=== PATIENT | female | born 1990 | race Hispanic/Latino ===

== ENCOUNTER 2019-08-02 13:19 | Emergency (ER) | payer MEDICAID ==
[2019-08-02 13:24] VITALS: BP 112/72
--- NOTE | 2019-08-02 13:25 | Event Note ---
ED Screening Note ED Screening Note: right lower abd pain that radiates to right leg that began 4 day ago no N/V tolerating PO intake no fever no urinary sx never had before no PMHx no allergies to meds LNMP 07/30/19 This initial assessment/diagnostic orders/clinical plan/treatment(s) is/are subject to change based on patients health status, clinical progression and re- assessment by fellow clinical providers in the ED. Further treatment and workup at subsequent clinical providers discretion. Patient/guardian urged not to elope from the ED as their condition may be serious if not clinically assessed and managed. Initial orders include: labs, UA, urine preg
[2019-08-02] MEDS ORDERED: HYDROcodone/ACETAMINOPHEN 5-325 MG TAB PO ONE (13:59)
[2019-08-02] MEDS ORDERED: IBUPROFEN 800 MG TAB PO ONE (13:59)
[2019-08-02 14:02] LABS: Hematocrit 43.7 % (30.3-42.9); Hemoglobin 14.9 gm/dl (10.1-14.3); Mean Corpuscular HGB Conc 34 % (30-34); Mean Corpuscular Volume 96 fl (79-97); Platelet Count 244 K/mm3 (140-440); Red Blood Count 4.57 M/mm3 (3.65-5.03); Red Cell Distribution Width 12.4 % (13.2-15.2)
--- NOTE | 2019-08-02 14:05 | Emergency Department Report ---
ED Abdominal Pain HPI - General Chief Complaint: Abdominal Pain Stated Complaint: RT ABD/RT LEG PAIN Time Seen by Provider: 08/02/19 13:24 Source: patient Mode of arrival: Ambulatory Limitations: No Limitations - History of Present Illness Initial Comments: Allegra is a healthy 29-year-old female who presents with 4 days of right lower quadrant right pelvic pain. The pain radiates to the right leg. It is sharp. Worse with certain position. She denies fever. She denies change in appetite. She denies vomiting. No previous history of ovarian cysts. Surgical history includes 3. MD Complaint: abdominal pain -: Gradual, days(s) (4) Location: RLQ Radiation: other (right leg) Severity: moderate Severity scale (0 -10): 8 Quality: sharp Consistency: intermittent Improves With: nothing Worsens With: movement Associated Symptoms: denies other symptoms - Related Data Previous Rx's Medication Instructions Recorded Last Taken Type Ibuprofen [Motrin 800 MG tab] 800 mg PO Q8HR PRN #15 tablet 08/02/19 Unknown Rx oxyCODONE /ACETAMINOPHEN [Percocet 1 tab PO Q6HR PRN #10 tablet 08/02/19 Unknown Rx 5/325] Allergies Allergy/AdvReac Type Severity Reaction Status Date / Time No Known Allergies Allergy Unverified 08/02/19 13:21 ED Review of Systems ROS: Stated complaint: RT ABD/RT LEG PAIN Other details as noted in HPI Comment: All other systems reviewed and negative Constitutional: denies: fever, malaise Respiratory: denies: cough Cardiovascular: denies: chest pain Gastrointestinal: abdominal pain. denies: nausea, vomiting Genitourinary: denies: urgency, dysuria, frequency, hematuria, discharge, abnormal menses, dyspareunia Musculoskeletal: denies: back pain ED Past Medical Hx - Past Medical History Previous Medical History?: No - Surgical History Past Surgical History?: Yes Additional Surgical History: x 3 - Social History Smoking Status: Never Smoker Substance Use Type: None - Medications Home Medications: Home Medications Medication Instructions Recorded Confirmed Last Taken Type Ibuprofen [Motrin 800 MG tab] 800 mg PO Q8HR PRN #15 tablet 08/02/19 Unknown Rx oxyCODONE /ACETAMINOPHEN [Percocet 1 tab PO Q6HR PRN #10 tablet 08/02/19 Unknown Rx 5/325] ED Physical Exam - General Limitations: No Limitations General appearance: alert, in no apparent distress - Head Head exam: Present: atraumatic, normocephalic - Eye Eye exam: Present: normal appearance - ENT ENT exam: Present: mucous membranes moist - Neck Neck exam: Present: normal inspection, full ROM - Respiratory Respiratory exam: Present: normal lung sounds bilaterally. Absent: respiratory distress, wheezes, rales, rhonchi - Cardiovascular Cardiovascular Exam: Present: regular rate, normal rhythm, normal heart sounds. Absent: systolic murmur, diastolic murmur, rubs, gallop - GI/Abdominal GI/Abdominal exam: Present: soft, tenderness, normal bowel sounds. Absent: distended, guarding, rebound - Extremities Exam Extremities exam: Present: normal inspection - Neurological Exam Neurological exam: Present: alert, oriented X3, normal gait - Psychiatric Psychiatric exam: Present: normal affect, normal mood - Skin Skin exam: Present: warm, dry, intact, normal color. Absent: rash ED Course Vital Signs 08/02/19 13:21 Temperature 98.3 F Pulse Rate 88 Respiratory 14 Rate Blood Pressure 112/72 O2 Sat by Pulse 99 Oximetry ED Medical Decision Making - Lab Data Result diagrams: 08/02/19 13:43 08/02/19 13:43 Laboratory Results - last 24 hr 08/02/19 08/02/19 08/02/19 13:43 13:43 13:52 WBC 5.6 RBC 4.57 Hgb 14.9 H Hct 43.7 H MCV 96 MCH 33 H MCHC 34 RDW 12.4 L Plt Count 244 Sodium 138 Potassium 4.2 Chloride 99.7 Carbon Dioxide 23 Anion Gap 20 BUN 12 Creatinine 0.8 Estimated GFR > 60 BUN/Creatinine Ratio 15 Glucose 46 L Calcium 9.6 Total Bilirubin 0.30 AST 31 ALT 48 Alkaline Phosphatase 66 Total Protein 7.5 Albumin 4.4 Albumin/Globulin Ratio 1.4 Urine Color Yellow Urine Turbidity Slightly-cloudy Urine pH 5.0 Ur Specific [place] 1.020 Urine Protein <15 mg/dl Urine Glucose (UA) Neg Urine Ketones Neg Urine Blood Sm Urine Nitrite Neg Ur Reducing Substances Not Reportable Urine Bilirubin Neg Urine Ictotest Not Reportable Urine Urobilinogen < 2.0 Ur Leukocyte Esterase Tr Urine WBC (Auto) 15.0 H Urine RBC (Auto) 4.0 U Epithel Cells (Auto) 2.0 Urine Bacteria (Auto) 1+ Urine Mucus Few Urine HCG, Qual Negative - Radiology Data Radiology results: report reviewed US: ruptured right ovarian cyst - Medical Decision Making right ovarian cyst ruptured, rx: percocet ibuprofen labs WNL negative CT a/p reveals right ovarian cyst trace fluid incidental renal stone 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 ED Disposition Clinical Impression: Ovarian cyst, right, Acute pelvic pain, female Disposition: TO HOME OR SELFCARE Is pt being admited?: No Does the pt Need Aspirin: No Condition: Stable Instructions: Ovarian Cyst (ED) Prescriptions: Ibuprofen [Motrin 800 MG tab] 800 mg PO Q8HR PRN #15 tablet PRN Reason: Pain , Severe (7-10) oxyCODONE /ACETAMINOPHEN [Percocet 5/325] 1 tab PO Q6HR PRN #10 tablet PRN Reason: Pain Referrals: [facility] [Outside] - 3-5 Days SHAKIRA RAGSDALE MD [Staff Physician] - 3-5 Days Forms: Work/School Release Form(ED)
[2019-08-02 14:26] LABS: Alanine Aminotransferase 48 units/L (7-56); Albumin 4.4 g/dL (3.9-5); BUN/Creatinine Ratio 15; Blood Urea Nitrogen 12 mg/dL (7-17); Calcium 9.6 mg/dL (8.4-10.2); Hemolysis Index 8
[2019-08-02 15:50] LABS: HCG Qualitative,Urine Negative (Negative)
[2019-08-02 15:53] LABS: Bacteria,Urine 1+ /HPF (Negative); Bilirubin,Urine NEG (Negative); Blood,Urine SM (Negative); Color,Urine Yellow (Yellow); Mucus,Urine FEW /HPF; Protein,Urine <15 mg/dL mg/dL (Negative); Urobilinogen,Urine < 2.0 mg/dL (<2.0)
--- NOTE | 2019-08-02 16:32 | Ultrasound Report ---
ULTRASOUND PELVIS INDICATION: right pelvic pain. TECHNIQUE: Transvaginal. Duplex Color Doppler used: Yes. COMPARISON: None available FINDINGS: Uterus: Present. Size: 9.2 x 4.2 x 5.2 cm. Endometrial complex: Thickened measuring 0.2 cm. Mass lesions: None. Additional findings: None. Right Ovary: Size: 4.5 x 2.6 x 3.8 cm Blood flow: Normal. Cyst or mass: Follicles measure up to 1.5 cm. No other solid or cystic lesions. Left Ovary: Size: 2.5 x 1.4 x 2.5 cm Blood flow: Normal. Cyst or mass: None. Urinary Bladder: Normal. Free Fluid: A small amount of free fluid is seen along the cul-de-sac and adjacent to the right ovary . Additional Findings: None. IMPRESSION: 1. Evidence of possible recent rupture of a right ovarian cyst. 2. Nonspecific endometrial thickening. Please correlate with the patient's menstrual cycle. Signer Name: Quang Ba MD Signed: 08/02/2019 4:28 PM Workstation Name: [id number]
[2019-08-02] MEDS ORDERED: KETOROLAC 30 MG/1 ML INJ IM ONE (16:49)
[2019-08-02] MEDS ORDERED: KETOROLAC 30 MG/1 ML INJ IV ONE (16:55)
--- NOTE | 2019-08-02 16:57 | Ultrasound Report ---
ULTRASOUND PELVIS INDICATION: Pelvic pain. TECHNIQUE: Transabdominal. Duplex Color Doppler used: Yes. COMPARISON: None available FINDINGS: Uterus: Present. Size: 9.2 x 4.2 x 5.2 cm. Endometrial complex: Thickened measuring 0.2 cm. Mass lesions: None. Additional findings: None. Right Ovary: Size: 4.5 x 2.6 x 3.8 cm Blood flow: Normal. Cyst or mass: A dominant follicle measures 2 cm. No other solid or cystic lesions are seen. Left Ovary: Size: 2.5 x 1.4 x 2.5 cm Blood flow: Normal. Cyst or mass: None. Urinary Bladder: Normal. Free Fluid: None. Additional Findings: None. IMPRESSION: 1. No acute sonographic abnormality of the pelvis. 2. Nonspecific endometrial thickening. Please correlate with the patient's menstrual cycle. Signer Name: Quang Ba MD Signed: 08/02/2019 4:53 PM Workstation Name: [id number]
--- NOTE | 2019-08-02 17:15 | Cat Scan Report ---
CT ABDOMEN AND PELVIS WITH IV CONTRAST INDICATION: MAIN: RLQ abd pain radiating don the leg- 100ml Omni 300. COMPARISON: Pelvic ultrasound earlier the same day. No prior CTs. TECHNIQUE: All CT scans at this facility use dose modulation, automated exposure control, iterative reconstructi on or weight based dosing, when appropriate, to reduce radiation dose to as low as reasonably achieva ble. FINDINGS: Lung Bases: No significant abnormality. Skeletal System: No acute abnormality. ABDOMEN: Liver: No significant abnormality. Gallbladder: No significant abnormality. Bile Ducts: No significant abnormality. Pancreas: No significant abnormality. Spleen: No significant abnormality. Adrenals: No significant abnormality. Right Kidney: There is a 9 mm nonobstructing lower pole calyceal stone. Left Kidney: No significant abnormality. Upper GI tract: No significant abnormality. Lymph Nodes: No significant adenopathy. Aorta: No significant abnormality. Additional Findings: No significant abnormality. PELVIS: Colon: No acute abnormality. Diverticulosis is noted. Urinary Bladder and Distal Ureters: No significant abnormality. Appendix: No significant abnormality. Lymph Nodes: No significant adenopathy. Additional Findings: There is a right ovarian cyst. There is trace free fluid in the cul-de-sac which may be physiologic. IMPRESSION: 1. No acute process in the abdomen or pelvis. 2. Incidental findings, as above. Signer Name: Arun Joshi MD Signed: 08/02/2019 5:11 PM Workstation Name: [id number]
== END 2019-08-02 17:47 | disposition home or self-care (01) ==
LOC: ED 13:19
DX: N83.201 Unspecified ovarian cyst, right side (principal); R10.2 Pelvic and perineal pain; Z98.890 Other specified postprocedural states; Z79.1 Long term (current) use of non-steroidal anti-inflammatories (NSAID); Z79.899 Other long term (current) drug therapy
CPT/HCPCS: 36415; 74177; 76830; 76856; 80053; 81001; 81025; 85027; 87076; 87086; 87186; 96374; 99284; J1885; Q9967

== ENCOUNTER 2019-08-14 21:06 | Emergency (ER) | payer MEDICAID ==
--- NOTE | 2019-08-14 21:30 | Emergency Department Report ---
Blank Doc - Documentation Documentation: 29-year-old female that presents with right flank pain. This initial assessment/diagnostic orders/clinical plan/treatment(s) is/are subject to change based on patient's health status, clinical progression and re- assessment by fellow clinical providers in the ED. Further treatment and workup at subsequent clinical providers discretion. Patient/guardians urged not to elope from the ED as their condition may be serious if not clinically assessed and managed. Initial orders include: 1- Patient sent to [facility] for further evaluation and treatment 2- UA
[2019-08-14 21:31] VITALS: BP 116/68
[2019-08-15 01:15] LABS: Bacteria,Urine 2+ /HPF (Negative); Bilirubin,Urine NEG (Negative); Blood,Urine LG (Negative); Color,Urine Yellow (Yellow); Mucus,Urine FEW /HPF; Protein,Urine <15 mg/dL mg/dL (Negative); Urobilinogen,Urine < 2.0 mg/dL (<2.0)
[2019-08-15 01:19] LABS: HCG Qualitative,Urine Negative (Negative)
--- NOTE | 2019-08-15 01:25 | Emergency Department Report ---
ED Female HPI - General Chief complaint: Back Pain/Injury Stated complaint: ABD PAIN Time Seen by Provider: 08/14/19 21:29 Source: patient Mode of arrival: Ambulatory Limitations: No Limitations - History of Present Illness Initial comments: This is a 29-year-old female that presents to the emergency room with right flank pain since last night. Patient mental pain to the right lower quadrant which she thought was related to ruptured right ovarian cyst diagnosed 2 weeks ago. 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 Patient states she didn't think much of the pain and so right flank pain started last night. She also reports hematuria started today. She denies urinary frequency, urgency, fever, chills, or vaginal discharge. MD Complaint: other (right flank pain and hematuria) Onset/Timin -: days(s) Location: other (right flank) Radiation: non-radiating Severity: moderate Severity scale (0 -10): 8 Quality: aching Consistency: intermittent Improves with: none Worsens with: none Are you Now?: No Last Menstrual Period: 07/31/19 EDC: 05/06/20 Associated Symptoms: hematuria. denies: vaginal discharge, vaginal bleeding, abdominal pain, nausea/vomiting, fever/chills, headaches, loss of appetite, dysuria, rash, seizure, shortness of breath, syncope, weakness - Related Data Sexually active: Yes Previous Rx's Medication Instructions Recorded Last Taken Type Ibuprofen [Motrin 800 MG tab] 800 mg PO Q8HR PRN #15 tablet 08/02/19 Unknown Rx oxyCODONE /ACETAMINOPHEN [Percocet 1 tab PO Q6HR PRN #10 tablet 08/02/19 Unknown Rx 5/325] Phenazopyridine [Pyridium] 200 mg PO TID #6 tab 08/15/19 Unknown Rx Sulfamethoxazole/Trimethoprim 1 each PO BID #6 tablet 08/15/19 Unknown Rx [Bactrim DS TAB] Allergies Allergy/AdvReac Type Severity Reaction Status Date / Time No Known Allergies Allergy Unverified 08/02/19 13:21 ED Review of Systems ROS: Stated complaint: ABD PAIN Other details as noted in HPI Constitutional: denies: chills, fever Respiratory: denies: cough, shortness of breath, wheezing Cardiovascular: denies: chest pain, palpitations Gastrointestinal: denies: abdominal pain, nausea, diarrhea Genitourinary: hematuria. denies: urgency, dysuria, discharge Musculoskeletal: back pain (right flank pain). denies: joint swelling, arthralgia Skin: denies: rash, lesions Neurological: denies: headache, weakness, paresthesias Psychiatric: denies: anxiety, depression ED Past Medical Hx - Past Medical History Previous Medical History?: No - Surgical History Past Surgical History?: Yes Additional Surgical History: x 3 - Social History Smoking Status: Never Smoker Substance Use Type: None - Medications Home Medications: Home Medications Medication Instructions Recorded Confirmed Last Taken Type Ibuprofen [Motrin 800 MG tab] 800 mg PO Q8HR PRN #15 tablet 08/02/19 Unknown Rx oxyCODONE /ACETAMINOPHEN [Percocet 1 tab PO Q6HR PRN #10 tablet 08/02/19 Unknown Rx 5/325] Phenazopyridine [Pyridium] 200 mg PO TID #6 tab 08/15/19 Unknown Rx Sulfamethoxazole/Trimethoprim 1 each PO BID #6 tablet 08/15/19 Unknown Rx [Bactrim DS TAB] ED Physical Exam - General Limitations: No Limitations General appearance: alert, in no apparent distress, obese - Respiratory Respiratory exam: Present: normal lung sounds bilaterally. Absent: respiratory distress - Cardiovascular Cardiovascular Exam: Present: regular rate, normal rhythm. Absent: systolic murmur, diastolic murmur, rubs, gallop - GI/Abdominal GI/Abdominal exam: Present: soft, normal bowel sounds. Absent: distended, tenderness, guarding, rebound, rigid, organomegaly, mass, pulsatile mass, hernia - Back Exam Back exam: Present: CVA tenderness (R). Absent: CVA tenderness (L), muscle spasm, paraspinal tenderness, vertebral tenderness, rash noted - Neurological Exam Neurological exam: Present: alert, oriented X3, normal gait - Psychiatric Psychiatric exam: Present: normal affect, normal mood - Skin Skin exam: Present: warm, dry, intact, normal color. Absent: rash ED Course Vital Signs 08/14/19 21:29 Temperature 98.3 F Pulse Rate 96 H Respiratory 18 Rate Blood Pressure 116/68 O2 Sat by Pulse 100 Oximetry ED Medical Decision Making - Lab Data Lab Results 08/15/19 Range/Units 00:18 Urine Color Yellow (Yellow) Urine Turbidity Clear (Clear) Urine pH 6.0 (5.0-7.0) Ur Specific [place] 1.005 (1.003-1.030) Urine Protein <15 mg/dl (Negative) mg/dL Urine Glucose (UA) Neg (Negative) mg/dL Urine Ketones Neg (Negative) mg/dL Urine Blood Lg (Negative) Urine Nitrite Neg (Negative) Urine Bilirubin Neg (Negative) Urine Urobilinogen < 2.0 (<2.0) mg/dL Ur Leukocyte Esterase Tr (Negative) Urine WBC (Auto) 7.0 H (0.0-6.0) /HPF Urine RBC (Auto) 41.0 (0.0-6.0) /HPF U Epithel Cells (Auto) 2.0 (0-13.0) /HPF Urine Bacteria (Auto) 2+ (Negative) /HPF Urine Mucus Few /HPF Urine HCG, Qual Negative (Negative) - Medical Decision Making This is a 29 y.o. female presents with right flank pain and hematuria for 1 day. Denies urinary frequency, discharge, fever, or chills. Patient was examined by me. A urinalysis and urine test obtained. Urinalysis positive for acute cystitis. Urine test negative. Review labs from 2 weeks ago and urine culture positive for Escherichia coli. Patient is nontender to palpation of abdomen. At this time I do not believe graphic imaging is indicated. Patient will be treated for acute cystitis with antibiotics and pyridium. Patient informed of results and ER plan. She agrees with ER plan. Patient discharged home in stable condition. Follow up with PCP in 2-3 days. Critical care attestation.: If time is entered above; I have spent that time in minutes in the direct care of this critically ill patient, excluding procedure time. ED Disposition Clinical Impression: Right flank pain Hematuria Qualifiers: Hematuria type: other microscopic Qualified Code(s): R31.29 - Other microscopic hematuria; R31.2 - Other microscopic hematuria Acute cystitis Qualifiers: Hematuria presence: with hematuria Qualified Code(s): N30.01 - Acute cystitis with hematuria Disposition: TO HOME OR SELFCARE Is pt being admited?: No Condition: Stable Instructions: Urinary Tract Infection in Women (ED) Additional Instructions: Increase fluid intake to 1L-2L per day. Complete full course of antibiotics as prescribed. Follow up with primary care doctor. Prescriptions: Sulfamethoxazole/Trimethoprim [Bactrim DS TAB] 1 each PO BID #6 tablet Phenazopyridine [Pyridium] 200 mg PO TID #6 tab Referrals: [facility] [Outside] - 3-5 Days [facility] [Outside] - 3-5 Days [facility] [Provider Group] - 3-5 Days [facility] [Provider Group] - 3-5 Days Forms: Work/School Release Form(ED) Time of Disposition: 01:39
== END 2019-08-15 01:45 | disposition home or self-care (01) ==
LOC: ED 21:06
DX: N30.01 Acute cystitis with hematuria (principal); R31.9 Hematuria, unspecified; Z98.890 Other specified postprocedural states; Z79.899 Other long term (current) drug therapy
CPT/HCPCS: 81001; 81025; 87086

== ENCOUNTER 2019-09-27 20:35 | Emergency (ER) | payer MEDICAID ==
[2019-09-27 20:55] VITALS: BP 112/78
--- NOTE | 2019-09-27 22:19 | Event Note ---
ED Screening Note Date of service: 09/27/19 Time: 22:20 ED Screening Note: 30 yo F w/ sharp, left sided back pain x 2 days. Hx of kidney stones in the past. Reports nausea, dysuria, hematuria. Pt reports she had a miscarriage 2 weeks ago, has since followed up with her clerk carrier. Pt reports today's pain feels similar to previous kidney stones. This initial assessment/diagnostic orders/clinical plan/treatment(s) is/are subject to change based on patients health status, clinical progression and re- assessment by fellow clinical providers in the ED. Further treatment and workup at subsequent clinical providers discretion. Patient/guardian urged not to elope from the ED as their condition may be serious if not clinically assessed and managed. Initial orders include: labs UA CT Abd/ Pelvis
[2019-09-27 22:45] LABS: Basophils # (Auto) 0.1 K/mm3 (0.0-0.1); Basophils % (Auto) 1.3 % (0.0-1.8); Eosinophils # (Auto) 0.2 K/mm3 (0.0-0.4); Eosinophils % (Auto) 2.9 % (0.0-4.3); Lymphocytes # (Auto) 2.2 K/mm3 (1.2-5.4); Lymphocytes % (Auto) 31.7 % (13.4-35.0); Mean Corpuscular HGB Conc 37 % (30-34); Mean Corpuscular Volume 93 fl (79-97); Monocytes # (Auto) 0.5 K/mm3 (0.0-0.8); Monocytes % (Auto) 7.3 % (0.0-7.3); Platelet Count 264 K/mm3 (140-440); Red Blood Count 4.12 M/mm3 (3.65-5.03); Red Cell Distribution Width 11.9 % (13.2-15.2)
[2019-09-27 22:48] LABS: Hematocrit 38.2 % (30.3-42.9); Hemoglobin 14.1 gm/dl (10.1-14.3)
[2019-09-27 22:58] LABS: BUN/Creatinine Ratio 13; Blood Urea Nitrogen 13 mg/dL (7-17); Calcium 9.6 mg/dL (8.4-10.2); Hemolysis Index 3
--- NOTE | 2019-09-28 00:07 | Emergency Department Report ---
ED Abdominal Pain HPI - General Chief Complaint: Abdominal Pain Stated Complaint: KIDNEY STONE Time Seen by Provider: 09/28/19 00:06 Source: patient Mode of arrival: Ambulatory Limitations: No Limitations - History of Present Illness Initial Comments: This is a 29-year-old female who presents to ED complaining of left-sided lower abdominal flank pain is worsened in the past 2 days. Patient states pain starts in the lower pelvic region and radiating to flank. She admits mild nausea with no vomiting but denies fevers/chills/dysuria/abnormal vaginal bleeding. Patient did mention that she had a miscarriage about 3-4 weeks ago and since then has followed up with her HAND [facility]TER with the post miscarriage ultrasound which was normal. MD Complaint: abdominal pain, flank pain - Related Data Previous Rx's Medication Instructions Recorded Last Taken Type Ibuprofen [Motrin 800 MG tab] 800 mg PO Q8HR PRN #15 tablet 08/02/19 Unknown Rx oxyCODONE /ACETAMINOPHEN [Percocet 1 tab PO Q6HR PRN #10 tablet 08/02/19 Unknown Rx 5/325] Phenazopyridine [Pyridium] 200 mg PO TID #6 tab 08/15/19 Unknown Rx Sulfamethoxazole/Trimethoprim 1 each PO BID #6 tablet 08/15/19 Unknown Rx [Bactrim DS TAB] Ketorolac [Toradol] 10 mg PO Q6H PRN #20 tablet 09/28/19 Unknown Rx Ondansetron [Zofran ODT TAB] 8 mg PO Q12HR #20 tab.rapdis 09/28/19 Unknown Rx Allergies Allergy/AdvReac Type Severity Reaction Status Date / Time No Known Allergies Allergy Unverified 08/02/19 13:21 ED Review of Systems ROS: Stated complaint: KIDNEY STONE Other details as noted in HPI Comment: All other systems reviewed and negative ED Past Medical Hx - Past Medical History Previous Medical History?: Yes Hx Diabetes: Yes (GESTATIONAL) Hx Kidney Stones: Yes Additional medical history: OVARIAN CYST - Surgical History Past Surgical History?: Yes Additional Surgical History: x 3 - Social History Smoking Status: Never Smoker Substance Use Type: None - Medications Home Medications: Home Medications Medication Instructions Recorded Confirmed Last Taken Type Ibuprofen [Motrin 800 MG tab] 800 mg PO Q8HR PRN #15 tablet 08/02/19 Unknown Rx oxyCODONE /ACETAMINOPHEN [Percocet 1 tab PO Q6HR PRN #10 tablet 08/02/19 Unknown Rx 5/325] Phenazopyridine [Pyridium] 200 mg PO TID #6 tab 08/15/19 Unknown Rx Sulfamethoxazole/Trimethoprim 1 each PO BID #6 tablet 08/15/19 Unknown Rx [Bactrim DS TAB] Ketorolac [Toradol] 10 mg PO Q6H PRN #20 tablet 09/28/19 Unknown Rx Ondansetron [Zofran ODT TAB] 8 mg PO Q12HR #20 tab.rapdis 09/28/19 Unknown Rx ED Physical Exam - General Limitations: No Limitations General appearance: alert, in no apparent distress - Head Head exam: Present: atraumatic, normocephalic - Eye Eye exam: Present: normal appearance - ENT ENT exam: Present: mucous membranes moist - Neck Neck exam: Present: normal inspection - Respiratory Respiratory exam: Present: normal lung sounds bilaterally. Absent: respiratory distress - Cardiovascular Cardiovascular Exam: Present: regular rate, normal rhythm. Absent: systolic murmur, diastolic murmur, rubs, gallop - GI/Abdominal GI/Abdominal exam: Present: soft, normal bowel sounds. Absent: distended, tenderness, guarding, rebound - Extremities Exam Extremities exam: Present: normal inspection - Back Exam Back exam: Present: normal inspection, full ROM, CVA tenderness (L). Absent: CVA tenderness (R) - Neurological Exam Neurological exam: Present: alert, oriented X3 - Psychiatric Psychiatric exam: Present: normal affect, normal mood - Skin Skin exam: Present: warm, dry, intact, normal color. Absent: rash ED Course Vital Signs 09/27/19 09/27/19 20:54 22:18 Temperature 98.6 F Pulse Rate 130 H 94 H Respiratory 20 Rate Blood Pressure 112/78 O2 Sat by Pulse 100 Oximetry ED Medical Decision Making - Lab Data Result diagrams: 09/27/19 22:27 09/27/19 22:27 Laboratory Last Values WBC 7.1 K/mm3 (4.5-11.0) 09/27/19 22:27 RBC 4.12 M/mm3 (3.65-5.03) 09/27/19 22:27 Hgb 14.1 gm/dl (10.1-14.3) 09/27/19 22:27 Hct 38.2 % (30.3-42.9) 09/27/19 22: MCV 93 fl (79-97) 09/27/19: MCH 34 pg (28-32) H 09/27/19: MCHC 37 % (30-34) H 09/27/19 22: RDW 11.9 % (13.2-15.2) L 09/27/19 22: Plt Count 264 K/mm3 (140-440) 09/27/19: Lymph % (Auto) 31.7 % (13.4-35.0) 09/27/19: [place] % (Auto) 7.3 % (0.0-7.3) 09/27/19: Eos % (Auto) 2.9 % (0.0-4.3) 09/27/19: Baso % (Auto) 1.3 % (0.0-1.8) 09/27/19: Lymph # 2.2 K/mm3 (1.2-5.4) 09/27/19: [place] # 0.5 K/mm3 (0.0-0.8) 09/27/19: Eos # 0.2 K/mm3 (0.0-0.4) 09/27/19: Baso # 0.1 K/mm3 (0.0-0.1) 09/27/19: Seg Neutrophils % 56.8 % (40.0-70.0) 09/27/19: Seg Neutrophils # 4.0 K/mm3 (1.8-7.7) 09/27/19 22: Sodium 138 mmol/L (137-145) 09/27/19: Potassium 3.4 mmol/L (3.6-5.0) L 09/27/19: Chloride 100.8 mmol/L (98-107) 09/27/19: Carbon Dioxide 21 mmol/L (22-30) L 09/27/19: Anion Gap 20 mmol/L 09/27/19 22: BUN 13 mg/dL (7-17) 09/27/19: Creatinine 1.0 mg/dL (0.7-1.2) 01/31/20 22:27 Estimated GFR > 60 ml/min 09/27/19 22:27 BUN/Creatinine Ratio 13 % 09/27/19 22:27 Glucose 94 mg/dL (65-100) 09/27/19 22:27 Calcium 9.6 mg/dL (8.4-10.2) 09/27/19 22:27 Urine Color [place] (Yellow) 09/27/19 Unknown Urine Turbidity Cloudy (Clear) 09/27/19 Unknown Urine pH 5.0 (5.0-7.0) 09/27/19 Unknown Ur Specific [place] 1.023 (1.003-1.030) 09/27/19 Unknown Urine Protein 100 mg/dl mg/dL (Negative) 09/27/19 Unknown Urine Glucose (UA) Neg mg/dL (Negative) 09/27/19 Unknown Urine Ketones 20 mg/dL (Negative) 09/27/19 Unknown Urine Blood Lg (Negative) 09/27/19 Unknown Urine Nitrite Neg (Negative) 09/27/19 Unknown Urine Bilirubin Neg (Negative) 09/27/19 Unknown Urine Urobilinogen 4.0 mg/dL (<2.0) 09/27/19 Unknown Ur Leukocyte Esterase Lg (Negative) 09/27/19 Unknown Urine WBC (Auto) > 182.0 /HPF (0.0-6.0) H 09/27/19 Unknown Urine RBC (Auto) > 182.0 /HPF (0.0-6.0) 09/27/19 Unknown U Epithel Cells (Auto) 10.0 /HPF (0-13.0) 09/27/19 Unknown Urine WBC Clumps 2+ /HPF 09/27/19 Unknown Urine Mucus Few /HPF 09/27/19 Unknown Urine HCG, Qual Positive (Negative) A 09/27/19 Unknown - Radiology Data Radiology results: report reviewed, image reviewed CT ABDOMEN AND PELVIS WITHOUT CONTRAST HISTORY: left flank pain. MISCARRIAGE 3 WEEKS AGO. . COMPARISON: CT abdomen/pelvis from 08/02/2019. TECHNIQUE: CT images of the abdomen and pelvis were obtained without administration of intravenous contrast. All CT scans at this location are performed using CT dose reduction for ALARA by means of automated exposure control. FINDINGS: Lungs/bones: The lung bases are clear. No acute osseous abnormality or significant degenerative change. Abdomen/pelvis: There is stable nonobstructive nephrolithiasis in the lower pole the right kidney measuring up to 9 mm in maximal dimension on image 90 of series #2. The kidneys otherwise appear unremarkable. There is no ureteral stone disease or hydronephrosis. The liver, gallbladder, spleen, pancreas, adrenals, and proximal GI tract appear unremarkable. Urinary bladder is mostly collapsed. Reproductive organs are unremarkable. No pelvic free fluid. No acute colonic abnormality identified. The terminal ileum and appendix appear normal. IMPRESSION: 1. No acute abnormality identified. 2. Stable nonobstructive nephrolithiasis on the right. Signer Name: Ryan Eddy MD Signed: 09/28/2019 1:03 AM Workstation Name: [id number] Transcribed By: HEMA Dictated By: Ryan Eddy MD Electronically Authenticated By: Ryan Eddy MD Signed Date/Time: 09/28/19 0103 - Medical Decision Making This 29-year-old female presents with flank pain secondary to kidney stone CBC, BMP, urinalysis and urine test ordered. All labs are within normal limits no leukocytosis. test is positive due to the fact that patient just underwent a miscarriage 2-[address] scan of the abdomen shows right nonobstructive nephrolithiasis, see report above Discussed all findings with the patient. Patient received 1 L of fluids, pain medication and nausea medication in the ED. Vital signs are normal patient is in no acute distress. - Differential Diagnosis nephrolithiasis, UTI, Critical care attestation.: If time is entered above; I have spent that time in minutes in the direct care of this critically ill patient, excluding procedure time. ED Disposition Clinical Impression: Right nephrolithiasis, Flank pain, acute, Abdominal pain Disposition: -01 TO HOME OR SELFCARE Is pt being admited?: No Does the pt Need Aspirin: No Condition: Stable Instructions: Kidney Stones (ED), Abdominal Pain (ED) Additional Instructions: Make sure to follow up with the primary care physician as discussed. Take all your medications as you've been prescribed. If you have any worsening symptoms or develop new symptoms please return to ED immediately. Prescriptions: Ketorolac [Toradol] 10 mg PO Q6H PRN #20 tablet PRN Reason: Pain Ondansetron [Zofran ODT TAB] 8 mg PO Q12HR #20 tab.rapdis Referrals: [facility] MD [Primary Care Provider] - 3-5 Days [facility] [Provider Group] - 3-5 Days [facility] [Provider Group] - 3-5 Days Forms: Accompanied Note, Work/School Release Form(ED) Time of Disposition: 01:22
[2019-09-28 00:14] LABS: Bilirubin,Urine NEG (Negative); Blood,Urine LG (Negative); Color,Urine Amber (Yellow); Mucus,Urine FEW /HPF
[2019-09-28 00:17] LABS: HCG Qualitative,Urine Positive (Negative); RBC,Urine > 182.0 /HPF (0.0-6.0); WBC,Urine > 182.0 /HPF (0.0-6.0)
[2019-09-28] MEDS ORDERED: KETOROLAC 30 MG/1 ML INJ IV ONE (00:47)
[2019-09-28] MEDS ORDERED: ONDANSETRON 4 MG/2 ML INJ IV ONE (00:47)
[2019-09-28] MEDS ORDERED: SODIUM CHLORIDE 0.9% 1000 ML 1,000 ML IV ONE (00:47)
--- NOTE | 2019-09-28 01:07 | Cat Scan Report ---
CT ABDOMEN AND PELVIS WITHOUT CONTRAST HISTORY: left flank pain. MISCARRIAGE 3 WEEKS AGO. . COMPARISON: CT abdomen/pelvis from 08/02/2019. TECHNIQUE: CT images of the abdomen and pelvis were obtained without administration of intravenous co ntrast. All CT scans at this location are performed using CT dose reduction for ALARA by means of au tomated exposure control. FINDINGS: Lungs/bones: The lung bases are clear. No acute osseous abnormality or significant degenerative deal ge. Abdomen/pelvis: There is stable nonobstructive nephrolithiasis in the lower pole the right kidney me asuring up to 9 mm in maximal dimension on image 90 of series #2. The kidneys otherwise appear unrema rkable. There is no ureteral stone disease or hydronephrosis. The liver, gallbladder, spleen, pancreas, adrenals, and proximal GI tract appear unremarkable. Urinary bladder is mostly collapsed. Reproductive organs are unremarkable. No pelvic free fluid. No a cute colonic abnormality identified. The terminal ileum and appendix appear normal. IMPRESSION: 1. No acute abnormality identified. 2. Stable nonobstructive nephrolithiasis on the right. Signer Name: Ryan Eddy MD Signed: 09/28/2019 1:03 AM Workstation Name: [id number]
== END 2019-09-28 02:40 | disposition home or self-care (01) ==
LOC: ED 20:35
DX: N20.0 Calculus of kidney (principal); R10.32 Left lower quadrant pain; R10.2 Pelvic and perineal pain; Z98.890 Other specified postprocedural states; Z79.899 Other long term (current) drug therapy
CPT/HCPCS: 36415; 74176; 80048; 81001; 81025; 85025; 96374; 96375; 99284; J1885; J2405; J7030

== ENCOUNTER 2020-10-12 10:21 | Emergency (ER) | payer MEDICAID ==
--- NOTE | 2020-10-12 10:29 | Emergency Department Report ---
Blank Doc - Documentation Documentation: 30-year-old female that presents with worsening abdominal pain with nausea vom iting. 149 tachycardia in triage. 1- This initial assessment/diagnostic orders/clinical plan/ treatment(s) is/are subject to change based on pt's health status, clinical progression and re-assessment by fellow clinical providers in the ED. Further treatment and workup at subsequent clinical provers discretion. Patient/guardians urged not to elope from ED as their condition may be serious if not clinically assessed and managed. 2-EKG 3-lab 4-UA
--- NOTE | 2020-10-12 10:38 | Emergency Department Report ---
ED General Adult HPI - General Chief complaint: Abdominal Pain Stated complaint: STOMACH PAIN PUI?: No Time Seen by Provider: 10/12/20 10:28 Source: patient, RN notes reviewed, old records reviewed Mode of arrival: Ambulatory Limitations: Physical Limitation - History of Present Illness Initial comments: The patient was evaluated in the emergency department for symptoms described in the history of present illness. He/she was evaluated in the context of the global COVID-19 pandemic, which necessitated consideration that the patient might be at risk for infection with the virus that causes COVID-19. Institutional protocols and algorithms that pertain to the evaluation of patients at risk for COVID-19 are in a state of rapid change based on information released by regulatory bodies including the CDC and federal and stat e organizations. These policies and algorithms were followed during the patient's care in the emergency department. Please note that these policies, procedures and recommendations changed on a rapid basis. During the history, physical examination, I am chaperoned by Stella Milian This is a 30-year-old female. She is not known to myself previously. She does not have a local primary care doctor. She has a history of intravenous methamphetamine use, currently in remission, and is abstinent from recreational drug consumption. She also has a history of x3. She presents to the ER today with complaint of nontraumatic epigastric and left upper quadrant pain that radiates to the flank. This started last night. Positive nausea, vomiting x2. Emesis is nonbloody and nonbilious. No dysuria. No lower abdominal pain. No headache, neck pain, chest pain, shortness of breath, states she is not , denies oral contraceptive use, denies DVT and pulmonary embolism risk factors. Had pain like this about a year ago, but "it went away on its own." -: minutes(s), days(s) Location: abdomen Radiation: back, abdomen Consistency: constant Improves with: medication, rest Worsens with: movement - Related Data Previous Rx's Medication Instructions Recorded Last Taken Type Phenazopyridine [Pyridium] 200 mg PO TID #6 tab 08/15/19 Unknown Rx Ondansetron [Zofran ODT TAB] 8 mg PO Q12HR #20 tab.rapdis 09/28/19 Unknown Rx Acetaminophen [Non-Aspirin Extra 500 mg PO Q6HR PRN #30 tablet 10/12/20 Unknown Rx Strength] Lula Root [Lula] 250 mg PO QID PRN #30 capsule 10/12/20 Unknown Rx Morphine Sulfate [Morphine Sulfate 7.5 mg PO Q6HR PRN #10 tablet 10/12/20 Unknown Rx IR] Ondansetron [Zofran Odt] 4 mg PO Q8HR PRN #20 tab.rapdis 10/12/20 Unknown Rx levoFLOXacin [Levaquin] 750 mg PO QDAY #10 tablet 10/12/20 Unknown Rx Allergies Allergy/AdvReac Type Severity Reaction Status Date / Time No Known Allergies Allergy Verified 10/12/20 10:22 ED Review of Systems ROS: Stated complaint: STOMACH PAIN Other details as noted in HPI Constitutional: other (Denies loss of taste and smell). denies: fever, malaise, weakness Eyes: denies: eye discharge ENT: denies: dental pain, epistaxis Respiratory: denies: cough Cardiovascular: palpitations. denies: chest pain Gastrointestinal: abdominal pain, nausea, vomiting. denies: constipation, hematemesis, melena, hematochezia Genitourinary: denies: dysuria Musculoskeletal: back pain Neurological: denies: weakness Psychiatric: anxiety Hematological/Lymphatic: denies: easy bleeding ED Past Medical Hx - Past Medical History Hx Diabetes: Yes (GESTATIONAL) Hx Kidney Stones: Yes Additional medical history: OVARIAN CYST - Surgical History Additional Surgical History: x 3 - Social History Smoking Status: Current Some Day Smoker Substance Use Type: None - Medications Home Medications: Home Medications Medication Instructions Recorded Confirmed Last Taken Type Phenazopyridine [Pyridium] 200 mg PO TID #6 tab 08/15/19 Unknown Rx Ondansetron [Zofran ODT TAB] 8 mg PO Q12HR #20 tab.rapdis 09/28/19 Unknown Rx Acetaminophen [Non-Aspirin Extra 500 mg PO Q6HR PRN #30 tablet 10/12/20 Unknown Rx Strength] Lula Root [Lula] 250 mg PO QID PRN #30 capsule 10/12/20 Unknown Rx Morphine Sulfate [Morphine Sulfate 7.5 mg PO Q6HR PRN #10 tablet 10/12/20 Unknown Rx IR] Ondansetron [Zofran Odt] 4 mg PO Q8HR PRN #20 tab.rapdis 10/12/20 Unknown Rx levoFLOXacin [Levaquin] 750 mg PO QDAY #10 tablet 10/12/20 Unknown Rx ED Physical Exam - General Limitations: No Limitations General appearance: alert, anxious, in distress, obese - Head Head exam: Present: atraumatic, normocephalic - Eye Eye exam: Present: normal appearance, EOMI. Absent: nystagmus - ENT ENT exam: Present: normal exam, normal orophraynx, mucous membranes moist, normal external ear exam - Neck Neck exam: Present: normal inspection, full ROM. Absent: tenderness, meningismus - Respiratory Respiratory exam: Present: normal lung sounds bilaterally. Absent: respiratory distress, wheezes, rales, rhonchi, stridor, decreased breath sounds - Cardiovascular Cardiovascular Exam: Present: normal rhythm, tachycardia, normal heart sounds. Absent: bradycardia, irregular rhythm, systolic murmur, diastolic murmur, rubs, gallop - GI/Abdominal GI/Abdominal exam: Present: soft, tenderness, guarding (Voluntary guarding in the right upper quadrant), normal bowel sounds, other (There is right upper quadrant tenderness. There is a positive Padilla sign.). Absent: distended, rebound, rigid, pulsatile mass - Extremities Exam Extremities exam: Present: normal inspection, full ROM, other (2+ pulses noted in the bilateral upper and lower extremities. There is no palpable cord. negative Homans sign. Muscular compartments are soft. The pelvis is stable.). Absent: pedal edema, calf tenderness - Back Exam Back exam: Present: normal inspection, full ROM. Absent: tenderness, CVA tenderness (R), CVA tenderness (L), paraspinal tenderness, vertebral tenderness - Neurological Exam Neurological exam: Present: alert, oriented X3, other (No facial droop. Tongue midline. Extraocular movements intact bilaterally. Facial sensation intact to light touch in V1, V2, V3 distribution bilaterally. 5 and a 5 strength in 4 extremities. Sensation intact to light touch in 4 extremities.). Absent: motor sensory deficit - Psychiatric Psychiatric exam: Present: anxious - Skin Skin exam: Present: warm, dry, intact, normal color. Absent: rash ED Course Vital Signs 10/12/20 10/12/20 10/12/20 10:24 10:45 11:11 Temperature 98.5 F 98.5 F Pulse Rate 149 H 76 Respiratory 22 18 18 Rate Blood Pressure 143/95 Blood Pressure 148/88 [Right] O2 Sat by Pulse 99 100 100 Oximetry 10/12/20 13:27 Temperature Pulse Rate Respiratory 18 Rate Blood Pressure Blood Pressure [Right] O2 Sat by Pulse Oximetry - Reevaluation(s) Reevaluation #1: 10/12/20 10:47 Differential diagnosis, including but not limited to: Renal colic, biliary colic, pancreatitis, pneumonia Assessment and plan: 30-year-old female with epigastric and right upper quadrant pain, positive Padilla sign, suspicious for biliary colic. She is afebrile, with tachycardia, but otherwise reassuring vital signs. She is not hypoxic, or tachypneic, denies DVT and pulmonary embolism risk factors and is low risk by Wells criteria. This is unlikely to be a pulmonary embolism. Check right upper quadrant ultrasound, x-ray of the chest to exclude atypical presentation of right lower lobe infiltrate, treat patient's pain aggressively, obtain appropriate laboratory studies, and reassess after initial data points. Have discussed this plan of care with the patient, who verbalized understanding, and is amenable to this plan of care. Reevaluation #2: 10/12/20 11:09 Feeling improved. No active vomiting. Heart rate 82 bpm. Reevaluation #3: 10/12/20 13:33 Urinalysis suggestive of urinary tract infection. Patient may have early pyelonephritis, CT scan reviewed and appreciated. I will treat the patient empirically for pyelonephritis. She is able to drink liquids at this time without active vomiting. Counseled patient on significance of findings. We will give additional dose of hydromorphone for pain, and low with 1 g of ceftriaxone. Discharged with pain medication, nausea medication antibiotics, and affordable prescription card. Return precautions are reviewed. Patient has verbalized understanding. ED Medical Decision Making - Lab Data Result diagrams: 10/12/20 10:39 10/12/20 10:39 Vital Signs 10/12/20 10/12/20 10:24 10:45 Temperature 98.5 F Pulse Rate 149 H Respiratory 22 18 Rate Blood Pressure 143/95 O2 Sat by Pulse 99 100 Oximetry - EKG Data -: EKG Interpreted by [place] - EKG Data 10/12/20 10:48 Sinus rhythm, tachycardia, 121 bpm. Normal axis, normal intervals, minimal motion artifact. This EKG is not a STEMI. - Radiology Data Radiology results: pending, report reviewed, image reviewed LIMITED RUQ ABDOMINAL ULTRASOUND INDICATION: ruq pain. COMPARISON: CT abdomen pelvis without contrast 09/28/2019. FINDINGS: Pancreas: Visualized portions show no significant abnormality. Abdominal Aorta: No significant abnormality. IVC: No significant abnormality. Liver: The liver measures 15.1 cm in length. No significant abnormality. Normal hepatopedal blood flow in the main portal vein. Gallbladder: No significant abnormality. Bile ducts: No significant abnormality. Common bile duct measures 4.2 mm. Right kidney: The right kidney measures 10.4 cm in length. An approximate 1 cm calyceal stone is identified at the inferior pole. No hydronephrosis.. Free fluid: None. Additional Findings: None. IMPRESSION: Right renal stone as described. Otherwise unremarkable exam.. Signer Name: Nehemiah Olson Jr, MD Signed: 10/12/2020 11:09 AM Workstation Name: [id number] CT abdomen pelvis w con INDICATION: Acute right upper quadrant pain. Right flank pain.. COMPARISON: September 28 2019 TECHNIQUE: Abdominal and pelvic CT exam performed. All CT scans at this location are performed using CT dose reduction for ALARA by means of automated exposure control. FINDINGS: CT ABDOMEN and PELVIS: Lung Bases: No significant abnormality. Liver: No significant abnormality. Biliary: No significant abnormality. Spleen: No signif icant abnormality. Pancreas: No significant abnormality. Adrenals: No significant abnormality. Kidneys: There are 2 right lower pole calyceal stones measuring 8 mm and 5 mm which have mildly enlarged compared to prior examination. No hydronephrosis. No intraureteral stones. Lymphatics: No lymphadenopathy. Vasculature: No significant abnormality. Bowel: No significant abnormality. Normal appendix. Pelvis: No significant abnormality. Osseous Structures: No aggressive osseous lesion. Additional Findings: None IMPRESSION: 1. No acute abnormality of the abdomen or pelvis. 2. Right lower nonobstructive calyceal stones are mildly enlarged prior examination. Signer Name: Mason Dale MD Signed: 10/12/2020 11:58 AM XR chest 1V ap INDICATION / CLINICAL INFORMATION: ruq pain, tachycardia CORTNEY RISON: None available. FINDINGS: SUPPORT DEVICES: None. HEART / MEDIASTINUM: No significant abnormality. LUNGS / PLEURA: Lungs are clear. Costophrenic sulci are sharp. No pneumothorax. ADDITIONAL FINDINGS: No significant additional findings. IMPRESSION: 1. No acute findings. Signer Name: Mason Dale MD Signed: 10/12/2020 11:52 AM Workstation Name: [id number] Critical care attestation.: If time is entered above; I have spent that time in minutes in the direct care of this critically ill patient, excluding procedure time. ED Disposition Clinical Impression: Acute abdominal pain, Pyelonephritis Disposition: - TO HOME OR SELFCARE Is pt being admited?: No Does the pt Need Aspirin: No Condition: Good Instructions: Abdominal Pain, Adult, Abdominal Pain (ED), Pyelonephritis, Adult Additional Instructions: Take the antibiotics as directed. Cultures were sent today, and results will be available in the next 3 to 5 days. Please have your primary care doctor cont act the medical records department to obtain culture results. Do not take Metformin medication for the next 2 days, if patient takes this medication. Avoid consumption of heavy and spicy foods, Motrin, ibuprofen, Naprosyn, Aleve. Take the pain medication, nausea medication as needed and directed. Follow-up with a primary care doctor within the next [address] Garcia Is a local primary care doctor. . Avoid consumption of tobacco, smoke products, marijuana, alcohol. Please return to the emergency room right away with new pain, worsened pain, migration of pain, projectile vomiting, change in mental status, confusion, inability to tolerate liquid feeds, new, worsened or different symptoms not present on the initial emergency room evaluation. Prescriptions: Lula Root [Lula] 250 mg PO QID PRN #30 capsule PRN Reason: Nausea Acetaminophen [Non-Aspirin Extra Strength] 500 mg PO Q6HR PRN #30 tablet PRN Reason: Pain , Severe (7-10) Ondansetron [Zofran Odt] 4 mg PO Q8HR PRN #20 tab.rapdis PRN Reason: Nausea Referrals: JENNA GARCIA MD [Staff Physician] - 3-5 Days Forms: Work/School Release Form(ED)
[2020-10-12] MEDS ORDERED: ONDANSETRON 4 MG/2 ML INJ IV ONE (10:44)
[2020-10-12] MEDS ORDERED: LACTATED RINGERS 1,000 ML IV ONE (10:44)
[2020-10-12] MEDS ORDERED: HYDROmorphone 1 MG/1 ML INJ IV ONE ×2 (10:44→13:32)
[2020-10-12 11:03] LABS: Basophils % (Auto) 0.5 % (0.0-1.8); Eosinophils % (Auto) 0.2 % (0.0-4.3); Hematocrit 43.3 % (30.3-42.9); Hemoglobin 14.3 gm/dl (10.1-14.3); Lymphocytes # (Auto) 1.7 K/mm3 (1.2-5.4); Lymphocytes % (Auto) 21.4 % (13.4-35.0); Mean Corpuscular HGB Conc 33 % (30-34); Mean Corpuscular Volume 91 fl (79-97); Monocytes # (Auto) 0.3 K/mm3 (0.0-0.8); Monocytes % (Auto) 4.3 % (0.0-7.3); Platelet Count 329 K/mm3 (140-440); Red Blood Count 4.74 M/mm3 (3.65-5.03); Red Cell Distribution Width 16.5 % (13.2-15.2)
[2020-10-12 11:10] LABS: INR 0.94 (0.87-1.13)
[2020-10-12 11:20] LABS: Alanine Aminotransferase 21 units/L (7-56); Albumin 4.6 g/dL (3.9-5); Blood Urea Nitrogen 9 mg/dL (7-17); Calcium 9.7 mg/dL (8.4-10.2); Hemolysis Index 6
[2020-10-12 11:31] LABS: BUN/Creatinine Ratio 13
--- NOTE | 2020-10-12 12:13 | Ultrasound Report ---
LIMITED RUQ ABDOMINAL ULTRASOUND INDICATION: ruq pain. COMPARISON: CT abdomen pelvis without contrast 09/28/2019. FINDINGS: Pancreas: Visualized portions show no significant abnormality. Abdominal Aorta: No significant abnormality. IVC: No significant abnormality. Liver: The liver measures 15.1 cm in length. No significant abnormality. Normal hepatopedal blood fl ow in the main portal vein. Gallbladder: No significant abnormality. Bile ducts: No significant abnormality. Common bile duct measures 4.2 mm. Right kidney: The right kidney measures 10.4 cm in length. An approximate 1 cm calyceal stone is iden tified at the inferior pole. No hydronephrosis.. Free fluid: None. Additional Findings: None. IMPRESSION: Right renal stone as described. Otherwise unremarkable exam.. Signer Name: Nehemiah Olson Jr, MD Signed: 10/12/2020 12:09 PM Workstation Name: [id number]
--- NOTE | 2020-10-12 12:56 | XRay Report ---
XR chest 1V ap INDICATION / CLINICAL INFORMATION: ruq pain, tachycardia COMPARISON: None available. FINDINGS: SUPPORT DEVICES: None. HEART / MEDIASTINUM: No significant abnormality. LUNGS / PLEURA: Lungs are clear. Costophrenic sulci are sharp. No pneumothorax. ADDITIONAL FINDINGS: No significant additional findings. IMPRESSION: 1. No acute findings. Signer Name: Mason Dale MD Signed: 10/12/2020 12:52 PM Workstation Name: [id number]
--- NOTE | 2020-10-12 13:02 | Cat Scan Report ---
CT abdomen pelvis w con INDICATION: Acute right upper quadrant pain. Right flank pain.. COMPARISON: September 28 2019 TECHNIQUE: Abdominal and pelvic CT exam performed. All CT scans at this location are performed using CT dose reduction for ALARA by means of automated exposure control. FINDINGS: CT ABDOMEN and PELVIS: Lung Bases: No significant abnormality. Liver: No significant abnormality. Biliary: No significant abnormality. Spleen: No significant abnormality. Pancreas: No significant abnormality. Adrenals: No significant abnormality. Kidneys: There are 2 right lower pole calyceal stones measuring 8 mm and 5 mm which have mildly enlar ged compared to prior examination. No hydronephrosis. No intraureteral stones. Lymphatics: No lymphadenopathy. Vasculature: No significant abnormality. Bowel: No significant abnormality. Normal appendix. Pelvis: No significant abnormality. Osseous Structures: No aggressive osseous lesion. Additional Findings: None IMPRESSION: 1. No acute abnormality of the abdomen or pelvis. 2. Right lower nonobstructive calyceal stones are mildly enlarged prior examination. Signer Name: Mason Dale MD Signed: 10/12/2020 12:58 PM Workstation Name: [id number]
[2020-10-12 13:11] LABS: Bacteria,Urine 1+ /HPF (Negative); Bilirubin,Urine NEG (Negative); Blood,Urine NEG (Negative); Color,Urine Yellow (Yellow); Mucus,Urine FEW /HPF; Urobilinogen,Urine < 2.0 mg/dL (<2.0)
[2020-10-12] MEDS ORDERED: SUCRALFATE 1 GM/10 ML ORAL LIQD PO ONE (13:12)
[2020-10-12] MEDS ORDERED: ACETAMINOPHEN 325 MG/10.15 ML ORAL LIQD UNIT DOSE PO ONE (13:12)
[2020-10-12] MEDS ORDERED: PANTOPRAZOLE 40 MG INJ IV ONE (13:12)
[2020-10-12] MEDS ORDERED: cefTRIAXone/NS 1 GM/50 ML 1 GM/50 ML BAG IV ONE (13:32)
[2020-10-12 13:48] VITALS: BP 132/82
== END 2020-10-12 14:36 | disposition home or self-care (01) ==
LOC: ED 10:21
DX: N12 Tubulo-interstitial nephritis, not specified as acute or chronic (principal); R10.13 Epigastric pain; R10.12 Left upper quadrant pain; E11.9 Type 2 diabetes mellitus without complications; F17.200 Nicotine dependence, unspecified, uncomplicated; Z98.890 Other specified postprocedural states; Z79.899 Other long term (current) drug therapy
CPT/HCPCS: 36415; 71045; 74177; 76705; 80053; 81001; 82550; 83690; 83735; 84443; 84702; 85025; 85610; 87076; 87086; 87186; 93005; 96361; 96365; 96375; 96376; 99284; C9113; J0696; J1170; J2405; J7120; Q9967

== ENCOUNTER 2020-10-13 10:13 | Emergency (ER) | payer MEDICAID ==
[2020-10-13] MEDS ORDERED: HYOSCYAMINE SUBL 0.125 MG TAB SL ONE (10:26)
[2020-10-13] MEDS ORDERED: ALUM-MAG HYDROXIDE-SIMETHICONE 200-200-20MG/5ML ORAL LIQD 30 ML PO ONE (10:26)
[2020-10-13] MEDS ORDERED: LIDOCAINE VISCOUS 2% 15 ML ORAL LIQD PO ONE (10:26)
[2020-10-13] MEDS ORDERED: ONDANSETRON 4 MG ODT TAB PO ONE (10:26)
--- NOTE | 2020-10-13 10:39 | Emergency Department Report ---
ED Abdominal Pain HPI - General Chief Complaint: Abdominal Pain Stated Complaint: KIDNEY STONE/SEEN HERE YESTERDAY Time Seen by Provider: 10/13/20 10:18 Source: patient Mode of arrival: Ambulatory Limitations: No Limitations - History of Present Illness Initial Comments: Patient is a 30-year-old female presents emergency room complaints of epigastric abdominal pain that began yesterday. She states it feels like a burning sensation and she also has some discomfort in the right upper quadrant. She states that it is a constant nagging pain. She has never seen a GI doctor before. I asked patient if she had a history of ulcers, she states that she has never been diagnosed but did have a suspicion that she may have ulcers. She has associated nausea and vomiting. She denies any diarrhea, fever, urinary symptoms, abnormal vaginal discharge, hematochezia, melena, hematemesis. 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 No allergies to medications. Patient was evaluated in the emergency department yesterday 10/12/2020 and was diagnosed with nephrolithiasis and UTI/possible early pyelonephritis. Patient was given prescription for antibiotics, antiemetics, pain medication, she states that she has been taking the medication as prescribed but continues to have a burning sensation. - Related Data Previous Rx's Medication Instructions Recorded Last Taken Type Phenazopyridine [Pyridium] 200 mg PO TID #6 tab 08/15/19 Unknown Rx Ondansetron [Zofran ODT TAB] 8 mg PO Q12HR #20 tab.rapdis 09/28/19 Unknown Rx Acetaminophen [Non-Aspirin Extra 500 mg PO Q6HR PRN #30 tablet 10/12/20 Unknown Rx Strength] Lula Root [Lula] 250 mg PO QID PRN #30 capsule 10/12/20 Unknown Rx Morphine Sulfate [Morphine Sulfate 7.5 mg PO Q6HR PRN #10 tablet 10/12/20 Unknown Rx IR] Ondansetron [Zofran Odt] 4 mg PO Q8HR PRN #20 tab.rapdis 10/12/20 Unknown Rx levoFLOXacin [Levaquin] 750 mg PO QDAY #10 tablet 10/12/20 Unknown Rx Famotidine [Pepcid] 40 mg PO QHS #30 tablet 10/13/20 Unknown Rx Lidocaine Viscous 2% 15 ml MM Q6HR PRN #1 bottle 10/13/20 Unknown Rx Mag Hydrox/Aluminum Hyd/Simeth 10 ml PO QID PRN #1 bottle 10/13/20 Unknown Rx [Maalox Advanced Suspension] Allergies Allergy/AdvReac Type Severity Reaction Status Date / Time No Known Allergies Allergy Verified 10/12/20 10:22 ED Review of Systems ROS: Stated complaint: KIDNEY STONE/SEEN HERE YESTERDAY Other details as noted in HPI Comment: All other systems reviewed and negative ED Past Medical Hx - Past Medical History Previous Medical History?: Yes Hx Diabetes: Yes (GESTATIONAL) Hx Kidney Stones: Yes Additional medical history: OVARIAN CYST - Surgical History Past Surgical History?: Yes Additional Surgical History: x 3 - Social History Smoking Status: Current Every Day Smoker Substance Use Type: None - Medications Home Medications: Home Medications Medication Instructions Recorded Confirmed Last Taken Type Phenazopyridine [Pyridium] 200 mg PO TID #6 tab 08/15/19 Unknown Rx Ondansetron [Zofran ODT TAB] 8 mg PO Q12HR #20 tab.rapdis 09/28/19 Unknown Rx Acetaminophen [Non-Aspirin Extra 500 mg PO Q6HR PRN #30 tablet 10/12/20 Unknown Rx Strength] Lula Root [Lula] 250 mg PO QID PRN #30 capsule 10/12/20 Unknown Rx Morphine Sulfate [Morphine Sulfate 7.5 mg PO Q6HR PRN #10 tablet 10/12/20 Unknown Rx IR] Ondansetron [Zofran Odt] 4 mg PO Q8HR PRN #20 tab.rapdis 10/12/20 Unknown Rx levoFLOXacin [Levaquin] 750 mg PO QDAY #10 tablet 10/12/20 Unknown Rx Famotidine [Pepcid] 40 mg PO QHS #30 tablet 10/13/20 Unknown Rx Lidocaine Viscous 2% 15 ml MM Q6HR PRN #1 bottle 10/13/20 Unknown Rx Mag Hydrox/Aluminum Hyd/Simeth 10 ml PO QID PRN #1 bottle 10/13/20 Unknown Rx [Maalox Advanced Suspension] ED Physical Exam - General Limitations: No Limitations General appearance: alert, in no apparent distress - Head Head exam: Present: atraumatic, normocephalic - Eye Eye exam: Present: normal appearance - ENT ENT exam: Present: mucous membranes moist - Respiratory Respiratory exam: Present: normal lung sounds bilaterally. Absent: respiratory distress, wheezes, rales, rhonchi, stridor, chest wall tenderness, accessory muscle use, decreased breath sounds, prolonged expiratory - Cardiovascular Cardiovascular Exam: Present: regular rate, normal rhythm, normal heart sounds. Absent: systolic murmur, diastolic murmur, rubs, gallop - GI/Abdominal GI/Abdominal exam: Present: soft, tenderness (epigastric, RUQ), normal bowel sounds, other (negative murphys sign, no mcburneys point ttp, negative toledo turners and cullens sign). Absent: distended, guarding, rebound, rigid - Back Exam Back exam: Absent: CVA tenderness (R), CVA tenderness (L) - Neurological Exam Neurological exam: Present: alert, oriented X3 - Psychiatric Psychiatric exam: Present: normal affect, normal mood - Skin Skin exam: Present: warm, dry, intact ED Course Vital Signs 10/13/20 10/13/20 10:14 12:44 Temperature 97.5 F L Pulse Rate 62 84 Respiratory 14 18 Rate Blood Pressure 158/83 Blood Pressure 146/93 [Right] O2 Sat by Pulse 98 97 Oximetry ED Medical Decision Making - Lab Data Vital Signs 10/13/20 10/13/20 10:14 12:44 Temperature 97.5 F L Pulse Rate 62 84 Respiratory 14 18 Rate Blood Pressure 158/83 Blood Pressure 146/93 [Right] O2 Sat by Pulse 98 97 Oximetry - Medical Decision Making Patient is a 30-year-old female presents emergency room complaints of epigastric abdominal pain that began yesterday. She states it feels like a burning sensation and she also has some discomfort in the right upper quadrant. She states that it is a constant nagging pain. She has never seen a GI doctor before. I asked patient if she had a history of ulcers, she states that she has never been diagnosed but did have a suspicion that she may have ulcers. She has associated nausea and vomiting. She denies any diarrhea, fever, urinary symptoms, abnormal vaginal discharge, hematochezia, melena, hematemesis. 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 No allergies to medications. Patient was evaluated in the emergency department yesterday 10/12/2020 and was diagnosed with nephrolithiasis and UTI/possible early pyelonephritis. Patient was given prescription for antibiotics, antiemetics, pain medication, she states that she has been taking the medication as prescribed but continues to have a burning sensation. On exam she has epigastric and right upper quadrant tenderness palpation, no guarding, no rebound, no rigidity, normal bowel sounds, no peritoneal signs, negative Padilla sign, negative McBurney's point tenderness, negative [place] Morrow or Guthrie sign. Patient had a thorough work-up in the emergency department yesterday including ultrasound, CT, labs, urine. Patient given GI cocktail and IM Dilaudid while in the emergency department and symptoms improved and she was feeling much better and ready to go home. Patient is able to tolerate p.o. intake. Patient was also evaluated by Dr. He, ER attending please see his note. Symptoms likely related to GERD versus PUD versus gastritis. Will be referred to a GI doctor and primary care physician. Advised patient to continue taking medications prescribed during her last ED visit. Patient also given a prescription for Pepcid, viscous lidocaine, Maalox. Advised patient Please take medication as prescribed. Please continue taking medication you are prescribed during your last visit. Follow-up with a primary care doctor. Follow-up with a GI doctor. Please follow the diet for acid reflux, gastritis, ulcers. Return to emergency room for any new or worsening symptoms. - Differential Diagnosis GERD, PUD, gastritis, pyelonephritis, nephrolithiasis, UTI Critical care attestation.: If time is entered above; I have spent that time in minutes in the direct care of this critically ill patient, excluding procedure time. ED Disposition Clinical Impression: Abdominal pain Qualifiers: Abdominal location: epigastric Qualified Code(s): R10.13 - Epigastric pain Disposition: DC- TO HOME OR SELFCARE Is pt being admited?: No Does the pt Need Aspirin: No Condition: Stable Instructions: Gastritis, Adult, [id number], Peptic Ulcer, Food Choices for Gastroesophageal Reflux Disease, Adult, Abdominal Pain (ED) Additional Instructions: Please take medication as prescribed. Please continue taking medication you are prescribed during your last visit. Follow-up with a primary care doctor. Follow-up with a GI doctor. Please follow the diet for acid reflux, gastritis, ulcers. Return to emergency room for any new or worsening symptoms. Prescriptions: Famotidine [Pepcid] 40 mg PO QHS #30 tablet Lidocaine Viscous 2% 15 ml MM Q6HR PRN #1 bottle PRN Reason: burning sensation Mag Hydrox/Aluminum Hyd/Simeth [Maalox Advanced Suspension] 10 ml PO QID PRN #1 bottle PRN Reason: pain/burning sensation Referrals: JENNA DE LUNA MD [Staff Physician] - 2-3 Days [facility] [Provider Group] - 2-3 Days Time of Disposition: 12:42 Print Language: ANDORRAN
--- NOTE | 2020-10-13 10:41 | Event Note ---
Date of service: 10/13/20 Face to Face: The patient was evaluated in the emergency department for symptoms described in the history of present illness. He/she was evaluated in the context of the global COVID-19 pandemic, which necessitated consideration that the patient might be at risk for infection with the virus that causes COVID-19. Institutional protocols and algorithms that pertain to the evaluation of patients at risk for COVID-19 are in a state of rapid change based on information released by regulatory bodies including the CDC and federal and state organizations. These policies and algorithms were followed during the patient's care in the emergency department. Please note that these policies, procedures and recommendations changed on a rapid basis. This is a 30-year-old female. I evaluated her yesterday. Patient was presumptively diagnosed with GERD/gastritis, and early pyelonephritis. She presents to the ER today with a complaint of recurrent epigastric abdominal pain, reported nausea and vomiting. The patient is afebrile with reassuring vital signs. She reports that she took her Levaquin this morning. Suspect that patient is experiencing natural history of GERD/gastritis, as well as early pyelonephritis. Minimal epigastric tenderness, no significant CVA tenderness, no significant right upper quadrant tenderness at this time, do not see indication for repeat imaging. Patient will be treated supportively and symptomatically. Patient counseled on natural history of presumed early pyelonephritis, and GERD/gastritis. Vital Signs 10/13/20 10:14 Temperature 97.5 F L Pulse Rate 62 Respiratory 14 Rate Blood Pressure 158/83 O2 Sat by Pulse 98 Oximetry
[2020-10-13] MEDS ORDERED: HYDROmorphone 1 MG/1 ML INJ IM ONE (11:43)
[2020-10-13 12:45] VITALS: BP 146/93
== END 2020-10-13 13:09 | disposition home or self-care (01) ==
LOC: ED 10:13
DX: R10.13 Epigastric pain (principal); R10.11 Right upper quadrant pain; E11.9 Type 2 diabetes mellitus without complications; F17.200 Nicotine dependence, unspecified, uncomplicated; Z98.890 Other specified postprocedural states; Z79.899 Other long term (current) drug therapy
CPT/HCPCS: 96372; 99282; J1170; Q0162